=== PATIENT | female | born 1995 | race African-American/Black ===

== ENCOUNTER 2017-03-22 11:29 | Emergency (ER) | payer MEDICAID ==
[~2017-03-22] VITALS: Ht 170.2 cm; Wt 59.0 kg
[2017-03-22 12:07] LABS: Basophils # (auto) 0 uL; Basophils % (auto) 0.3 % (0.0-2.0); Eosinophils # (auto) 0.2 uL; Eosinophils % (auto) 2.4 % (0.0-7.0); Hematocrit 39.8 % (36.0-46.0); Hemoglobin 13.1 g/dL (12.2-16.2); Lymphocytes # (auto) 1.2 uL; Lymphocytes % (auto) 18.3 % (10.0-50.0); Mean Corpuscular Hgb Conc. 32.9 g/dL (32.0-36.0); Mean Corpuscular Volume 85.1 fL (80.0-100.0); Mean Platelet Volume 8.3 fL (7.4-10.4); Monocytes # (auto) 0.3 uL; Monocytes % (auto) 4.4 % (0.0-12.0); Neutrophils # (auto) 4.9 uL; Neutrophils % (auto) 74.6 % (37.0-80.0); Platelet Count (auto) 327 10^3/uL (140-450); Red Cell Distribution Width 14.2 % (11.6-16.0); White Blood Cell 6.6 10^3/uL (4.4-10.8)
[2017-03-22 12:59] LABS: Albumin 3.8 g/dL (3.4-5.0); BUN/Creatinine Ratio 4.9; Bilirubin, Total 0.5 mg/dL (0.2-1.0); Calcium 9.2 mg/dL (8.5-10.1); Potassium 3.8 mmol/L (3.5-5.1); Total Protein 8.1 g/dL (6.4-8.2)
[2017-03-22 13:19] VITALS: BP 120/82
== END 2017-03-22 13:34 | disposition home or self-care (01) ==
LOC: ER 11:29 → EDBD 11:29 → ER 13:33
DX: N94.6 Dysmenorrhea, unspecified (principal); R11.2 Nausea with vomiting, unspecified
CPT/HCPCS: 36415; 80053; 85025

== ENCOUNTER 2017-05-28 18:46 | Emergency (ER) | payer MEDICAID ==
[~2017-05-28] VITALS: Ht 167.6 cm; Wt 69.4 kg
[2017-05-28 19:01] VITALS: BP 109/70
[2017-05-28 20:26] LABS: Basophils # (auto) 0 uL; Basophils % (auto) 0.1 % (0.0-2.0); CONDITION Y; Eosinophils # (auto) 0.1 uL; Eosinophils % (auto) 1.1 % (0.0-7.0); Hemoglobin 12.8 g/dL (12.2-16.2); Lymphocytes # (auto) 3.6 uL; Lymphocytes % (auto) 42.3 % (10.0-50.0); Mean Corpuscular Hemoglobin 28.1 pg (28.0-32.0); Mean Corpuscular Hgb Conc. 32.8 g/dL (32.0-36.0); Mean Corpuscular Volume 85.5 fL (80.0-100.0); Mean Platelet Volume 8.1 fL (7.4-10.4); Monocytes # (auto) 0.7 uL; Monocytes % (auto) 8.1 % (0.0-12.0); Neutrophils # (auto) 4.1 uL; Neutrophils % (auto) 48.4 % (37.0-80.0); Platelet Count (auto) 344 10^3/uL (140-450); Red Cell Distribution Width 13.9 % (11.6-16.0); White Blood Cell 8.5 10^3/uL (4.4-10.8)
[2017-05-28 20:31] LABS: Urine Bilirubin Negative (Negative); Urine Blood Negative /uL (Negative); Urine Color Yellow (Yellow); Urine Glucose Normal (Normal); Urine Ketone Negative (Negative); Urine Mucus FEW (None Seen); Urine Nitrite Negative (Negative); Urine RBC 1 /hpf (0 - 4); Urine Squamous Epithelial Cell FEW /hpf (<5)
[2017-05-28 20:48] LABS: Albumin 3.8 g/dL (3.4-5.0); BUN/Creatinine Ratio 16.2; Calcium 8.6 mg/dL (8.5-10.1); Potassium 3.8 mmol/L (3.5-5.1)
[2017-05-28 20:49] LABS: Bilirubin, Total 0.3 mg/dL (0.2-1.0)
== END 2017-05-28 23:36 | disposition home or self-care (01) ==
LOC: ER 18:50
DX: O20.0 Threatened abortion (principal); O23.41 Unspecified infection of urinary tract in pregnancy, first trimester; Z3A.09 9 weeks gestation of pregnancy
CPT/HCPCS: 36415; 76801; 80053; 81001; 84702; 85025